=== PATIENT | female | born 1990 | race Caucasian/White ===

== ENCOUNTER 2017-07-29 08:46 | Emergency (ER) | payer MEDICAID ==
[~2017-07-29] VITALS: Ht 5283.9 cm; Wt 65.0 kg
[2017-07-29] MEDS ORDERED: DEXT1CAP3 PO (09:31)
[2017-07-29] MEDS ORDERED: TRAZODONE PO ×2 (09:31)
[2017-07-29] MEDS ORDERED: OLAN10TA3 PO (09:31)
[2017-07-29] MEDS ORDERED: LITH300T34 PO (09:31)
[2017-07-29 09:36] LABS: CLARITY,URINE SLIGHTLY CLOUDY (Clear); COLOR,URINE YELLOW (Yellow); GLUCOSE, URINE NEGATIVE (Neg); KETONES,URINE NEGATIVE (Neg); LEUKOCYTE ESTERASE ,URINE SMALL (Neg); NITRITES, URINE NEGATIVE (Neg); OCCULT BLOOD,URINE LARGE (Neg); PH,URINE 7.5 (4.8-8.0); PROTEIN,URINE 30 mg/dl (Neg); URINE HCG NEGATIVE (NEG); UROBILINOGEN,URINE 0.2 E.U/dL (0.2-1.0)
[2017-07-29 09:41] LABS: UA COLLECTION TYPE CLN CATCH MIDSTREAM
[2017-07-29 09:42] LABS: RBC,URINE 0-2 /HPF (0-2); SQUAMOUS EPITHELIAL CELL,UR MANY /LPF (FEW)
[2017-07-29 09:43] LABS: BACTERIA,URINE 1+ /HPF (Neg)
[2017-07-29 09:54] LABS: URINE AMPHETAMINE SCREEN NEGATIVE (Neg); URINE BARBITUATE SCREEN NEGATIVE (Neg); URINE BENZODIAZEPINES SCREEN NEGATIVE (Neg); URINE CANNABINOID SCREEN NEGATIVE (Neg); URINE COCAINE SCREEN NEGATIVE (Neg); URINE METHADONE SCREEN NEGATIVE (Neg); URINE OPIATE SCREEN NEGATIVE (Neg); URINE PHENCYCLIDINE SCREEN NEGATIVE (Neg)
[2017-07-29 10:03] LABS: BASOPHILS % (AUTO) 0.3 % (0-1); EOSINOPHILS # (AUTO) 0.3 X10'3 (0-0.9); EOSINOPHILS % (AUTO) 2.6 % (0-6); HEMATOCRIT 36.4 % (35.0-45.0); HEMOGLOBIN 12.2 g/dl (12.0-16.0); LYMPHOCYTES # (AUTO) 1.5 X10'3 (1.1-4.8); LYMPHOCYTES % (AUTO) 11.3 % (21-51); MEAN CORPUSCULAR HEMOGLOBIN 29.5 PG (27.0-31.0); MEAN CORPUSCULAR HGB CONC 33.5 % (33.0-36.5); MEAN CORPUSCULAR VOLUME 87.9 FL (78-98); MONOCYTES # (AUTO) 0.7 X10'3 (0-0.9); MONOCYTES % (AUTO) 5.5 % (2-12); NEUTROPHILS # (AUTO) 10.3 X10'3 (1.8-7.7); NEUTROPHILS % (AUTO) 80.3 % (42-75); PLATELET COUNT 460 X10'3 (140-440); RED BLOOD COUNT 4.14 X10'6 (4.20-5.60); RED CELL DISTRIBUTION WIDTH 12.9 % (11.5-14.5); WHITE BLOOD COUNT 12.8 X10'3 (4.5-11.0)
[2017-07-29] MEDS ORDERED: TRAZ-143 PO ×2 (10:03→10:09)
[2017-07-29] MEDS ORDERED: traZODone 50mg tablet PO PRN (10:15)
[2017-07-29 10:16] LABS: ALANINE AMINOTRANSFERASE 25 U/L (12-78); ALBUMIN 3.5 G/DL (3.4-5.0); ALBUMIN/GLOBULIN RATIO 0.8 (1.1-1.5); ALKALINE PHOSPHATASE 123 IU/L (46-116); ANION GAP 7 (8-16); ASPARTATE AMINO TRANSFERASE 18 U/L (10-37); BILIRUBIN,TOTAL 0.4 MG/DL (0.1-1.0); BLOOD UREA NITROGEN 8 MG/DL (7-18); BUN/CREATININE RATIO 9.5 (6.6-38.0); CALCIUM 9.5 MG/DL (8.5-10.1); CHLORIDE 106 MMOL/L (99-107); CREATININE 0.84 MG/DL (0.40-0.90); GLUCOSE 119 MG/DL (70-104); POTASSIUM 3.6 MMOL/L (3.5-5.1); SODIUM 137 MMOL/L (135-145); TOTAL CARBON DIOXIDE 24.2 MMOL/L (24-32); TOTAL PROTEIN 8.1 G/DL (6.4-8.2); eGFR 83 ML/MIN
[2017-07-29 10:26] LABS: ETHANOL < 0.010 GM/DL (0.0-0.010)
[2017-07-29] MEDS: olanzapine 10mg tablet PO SCH ×2 (10:30→20:09)
[2017-07-29] MEDS: lithium carbonate 300mg SR tablet (LithoBID) PO SCH ×2 (10:30→20:09)
[2017-07-29] MEDS: cephalexin 250mg capsule PO SCH ×3 (11:36→20:10)
[2017-07-29] MEDS ORDERED: [UNRECOGNIZED DRUG - REMARK] MC PRN (17:25)
[2017-07-29] MEDS ORDERED: acetaminophen 325mg tablet PO ONE (18:50)
[2017-07-29] MEDS ORDERED: traZODone 50mg tablet PO SCH (21:00)
[2017-07-30 05:46] VITALS: BP 128/83
[2017-07-30] MEDS ORDERED: naproxen 500mg tablet PO ONE (07:00)
[2017-07-30] MEDS: cephalexin 250mg capsule PO SCH ×2 (07:38→13:00)
[2017-07-30] MEDS: olanzapine 10mg tablet PO SCH (07:38)
[2017-07-30] MEDS: lithium carbonate 300mg SR tablet (LithoBID) PO SCH (07:38)
[2017-07-30] MEDS ORDERED: MONO-LINYAH PO (08:57)
[2017-07-30] MEDS ORDERED: FLUT16SP2 BOTHNARES (08:57)
[2017-07-30] MEDS ORDERED: CETI10TA18 PO (08:57)
[2017-07-30] MEDS ORDERED: BUDE180A INH (08:57)
[2017-07-30] MEDS ORDERED: BENZ60GE TOP (08:57)
[2017-07-30] MEDS ORDERED: OMEPRAZOLE PO (08:57)
[2017-07-31] MEDS ORDERED: pantoprazole 40mg Tablet.DR PO SCH (07:30)
[2017-07-31] MEDS ORDERED: cetirizine 10mg tablet PO SCH (08:00)
[2017-07-31] MEDS ORDERED: MONO LINYAH PO SCH (08:00)
[2017-07-31] MEDS ORDERED: fluticasone furoate 100MCG/puff inhaler IH SCH (08:00)
[2017-07-31] MEDS ORDERED: fluticasone nasal spray 16GM bottle NS SCH (08:00)
== END 2017-07-30 14:31 ==
LOC: ER 08:47
DX: R45.851 Suicidal ideations (principal); N39.0 Urinary tract infection, site not specified; M41.9 Scoliosis, unspecified; F31.9 Bipolar disorder, unspecified; F20.9 Schizophrenia, unspecified; Z98.890 Other specified postprocedural states; Z87.891 Personal history of nicotine dependence; Z56.0 Unemployment, unspecified; Z88.6 Allergy status to analgesic agent; Z79.899 Other long term (current) drug therapy
CPT/HCPCS: 36415; 80053; 80178; 80305; 80320; 81001; 81025; 84443; 85025; 99285; J3490; J7030